=== PATIENT | female | born 1980 | race Hispanic/Latino ===

== ENCOUNTER 2017-07-12 17:57 | Emergency (ER) | payer BC ==
[2017-07-12 18:18] VITALS: BP 110/71; PULSE 68; RESP 18; TEMP 98.5; O2SAT 100
[2017-07-12] MEDS ORDERED: Iohexol 240 (50 ml) PO STA (18:45)
[2017-07-12] MEDS ORDERED: Sodium Chloride 0.9% 1,000 ML IV STA (18:46)
--- NOTE | 2017-07-12 19:11 | ED PDOC ---
HPI: Abdomen Time Seen by Provider: 07/12/17 18:26 Chief Complaint (Nursing): Abdominal Pain Chief Complaint (Provider): Left Lower Abdominal Pain History Per: Patient History/Exam Limitations: no limitations Onset/Duration Of Symptoms: Intermittent Episodes (over 6 months) Current Symptoms Are (Timing): Still Present Location Of Pain/Discomfort: LLQ Quality Of Discomfort: "Pain" Associated Symptoms: denies: Fever, Chills, Nausea, Vomiting, Diarrhea, Loss Of Appetite Exacerbating Factors: None Alleviating Factors: None Additional Complaint(s): 36 year old female with a past medical history of fibroids presents to the emergency department complaining of left lower abdominal pain which has been ongoing intermittently for past 6 months. Patient states that over the past 3 months the pain has become more frequent and and persistent. She reports that the pain is localized to the left lower quadrant as well as the groin area. Patient reports that the pain worsens with certain movements and last week she was unable to sleep comfortably because of the pain. Patient has also noted some weight loss. Denies fever, chills, night sweats, vaginal discharge, vaginal bleeding, diarrhea, constipation. She states she has not taken anything for pain. Patient further reports that over the past month she has been seen by her primary care provider as well as her clinic physician director and has undergone both transvaginal and transabdominal ultrasounds which were both unremarkable. PMD: Dr. Coffman ([place]) Nuclear Licensing Engineer: Dr. Giordano ([place], [place]) Past Medical History Reviewed: Historical Data, Nursing Documentation, Vital Signs Vital Signs: Last Vital Signs Temp 98.5 F 07/12/17 18:15 Pulse 68 07/12/17 18:15 Resp 18 07/12/17 18:15 BP 110/71 07/12/17 18:15 Pulse Ox 100 07/12/17 23:30 - Medical History Other PMH: Fibroids - Surgical History Surgical History: Other surgeries: Abdominal Plasty - Family History Family History: States: Diabetes, Hypertension Other Family History: Cancer - Social History Current smoker - smoking cessation education provided: Yes Ex-Smoker (has not smoked in the last 12 months): No Alcohol: None Drugs: Denies - Immunization History Hx Influenza Vaccination: No Hx Pneumococcal Vaccination: No - Home Medications Home Medications: Ambulatory Orders Medication Instructions Recorded Progesterone 02/20/14 - Allergies Allergies/Adverse Reactions: Allergies Allergy/AdvReac Type Severity Reaction Status Date / Time No Known Allergies Allergy Verified 07/12/17 18:14 Review of Systems ROS Statement: Except As Marked, All Systems Reviewed And Found Negative Constitutional: Negative for: Fever, Chills, Sweats (no night sweats), Weight loss Gastrointestinal: Positive for: Abdominal Pain (LLQ and left groin area). Negative for: Nausea, Vomiting, Diarrhea, Constipation Genitourinary Female: Positive for: Other (no urinary symptoms). Negative for: Vaginal Discharge, Vaginal Bleeding Physical Exam - Reviewed Nursing Documentation Reviewed: Yes Vital Signs Reviewed: Yes - Physical Exam Appears: Positive for: Non-toxic (well developed; well nourished; mildly obese) , In Acute Distress (mild painfu;) Head Exam: Positive for: ATRAUMATIC, NORMOCEPHALIC Skin: Positive for: Warm, Dry Eye Exam: Positive for: EOMI, PERRL ENT: Negative for: Pharyngeal Erythema, Tonsillar Exudate Neck: Positive for: Painless ROM, Supple Cardiovascular/Chest: Positive for: Regular Rate, Rhythm. Negative for: Murmur Respiratory: Positive for: Normal Breath Sounds. Negative for: Respiratory Distress Gastrointestinal/Abdominal: Positive for: Bowel Sounds, Soft, Tenderness ( Tenderness to llq and left inguinal area ). Negative for: Mass, Guarding, Rebound Back: Positive for: Normal Inspection. Negative for: Muscle Spasm Extremity: Positive for: Normal ROM. Negative for: Deformity Lymphatic: Negative for: Adenopathy Neurologic/Psych: Positive for: Alert. Negative for: Motor/Sensory Deficits - Laboratory Results Result Diagrams: 07/12/17 18:55 07/12/17 18:55 - ECG O2 Sat by Pulse Oximetry: 100 (RA) Pulse Ox Interpretation: Normal Medical Decision Making Medical Decision Makin Initial Impression: 36 y/o female presenting with left lower quadrant abdominal pain Differential: Colitis, Diverticulitis, Intraabdominal mass, Renal colic, Inguinal hernia, Adhesional pain Initial Plan: * CT ABD & PELVIS PO & IV Contrast * CMP * Upreg * Udip * CBC * NS 1000 ml IV 1000 mls/hr * Iohexol 50mL PO * Reevaluation Accession No. : [id number] Patient Name / ID : MARKELL CAMPOS / [id number] Exam Date : 07/12/2017 20:47:53 ( Approved ) Study Comment : Sex / Age : F / 36Y Creator : Stephen Isidro MD Dictator : [employer] Reader : Orthopedic Brace Maker : Stephen Isidro MD Approver2 : Report Date : 07/12/2017 21:46:00 My Comment : [facility] Division of Radiology [address] [place] [address] Tel. no. Patient Name: ANDRES GUILLAUME Pt. Address: [address] [place] [address]. Rec #: [id number] [place] [address]: Walter TSAI, Odessa Lechuga Pt CELL Order Location: [facility] : 1980 Female Age: 36 Order #: [id number] Reason for exam: LLQ pain CT Scan ABD PELVIS PO IV CONTRAST Exam Date: 07/12/17 This imaging exam was performed at [facility] EXAM: CT Abdomen and Pelvis With Intravenous Contrast CLINICAL HISTORY: 36 years old, female; Pain; Abdominal pain; Localized; Left lower quadrant (llq); Prior surgery; Surgery date: 6+ months; Surgery type: Amdominal plasty; Additional info: Llq pain TECHNIQUE: Axial computed tomography images of the abdomen and pelvis with intravenous contrast. All CT scans at this facility use one or more dose reduction techniques, viz.: automated exposure control; ma/kV adjustment per patient size (including targeted exams where dose is matched to indication; i.e. head); or iterative reconstruction technique. Coronal and sagittal reformatted images were created and reviewed. CONTRAST: 98 mL of omnipaque-300 administered intravenously. COMPARISON: No relevant prior studies available. FINDINGS: Limitations: Motion artifact - mild. Lung bases: No acute findings. Mediastinum: Probable small hiatal hernia. ABDOMEN: Liver: Fatty infiltration. Gallbladder and bile ducts: No calcified stones. No ductal dilation. Pancreas: No ductal dilation. No mass. Spleen: No splenomegaly. Adrenals: No mass. Kidneys and ureters: No mass. No hydronephrosis. Stomach and bowel: No definite mural thickening. No obstruction. PELVIS: Appendix: Normal caliber. No inflammation. Bladder: Apparent mild bladder wall thickening. Incomplete distention, limiting evaluation. Reproductive: 1.3 x 1.4 x 2.0 cm peripherally enhancing hypodensity with crenulated margins within RIGHT ovary. ABDOMEN and PELVIS: Intraperitoneal space: Trace free fluid within pelvis. No free air. Bones/joints: No acute fracture. Soft tissues: Mild linear scarring anterior pelvic wall. Vasculature: Unremarkable. No aneurysm. Lymph nodes: No pathologically enlarged lymph nodes. IMPRESSION: 1. Involuting or ruptured RIGHT ovarian follicle/cyst. 2. Mild cystitis vs underdistention. Correlate with urinalysis. 3. Incidental/non-acute findings are described above. Dictated By: Stephen Isidro MD Dictated Date/Time: 07/12/172145 Signed By: Stephen Isidro MD Date Signed: 2145 Transcribed By: AJIT Transcribe Date/Time : 07/12/172145 ACYP02/ALISHA HELTON pt findings and plan of care. No emergent issue at this time. Possibility of non-radiographic clinical source still not excluded and GI referral through PMD recommended. Questions/concerns answered/addressed. Pt requested copies of results which were given directly to her. Documented by Mehnaz Anguiano acting as a scribe for Odessa Watson MD. All medical record entries made by the Scribe were at my direction and personally dictated by me. I have reviewed the chart and agree that the record accurately reflects my personal performance of the history, physical exam, medical decision making, and the department course for this patient. I have also personally directed, reviewed, and agree with the discharge instructions and disposition. Disposition - Clinical Impression Clinical Impression: Abdominal pain Counseled Patient/Family Regarding: Studies Performed, Diagnosis, Need For Followup - Disposition Disposition: Routine/Home Disposition Time: 23:30 Condition: STABLE Additional Instructions: TAKE TYLENOL OR MOTRIN FOR PAIN FOLLOW UP WITH YOUR DOCTOR IN 2-3 DAYS. YOU MAY NEED A REFERRAL TO STRAIGHT RULING MACHINE OPERATOR FOR ANY FURTHER EVALUATION. Instructions: Stomach Ache and Stomach Upset Forms: [employer] ([place])
[2017-07-12 19:15] LABS: BASO % 0.6 % (0.0-2.0); EOS % 0.7 % (0.0-4.0); HEMOGLOBIN 13.1 g/dL (12.0-16.0); LYMPH # 3.1 K/uL (1.0-4.3); MEAN CELL VOLUME 85.9 fl (81.0-99.0); MEAN CORPUSCULAR HEMOGLOBIN 28.8 pg (27.0-31.0); MEAN CORPUSCULAR HGB CONC 33.5 g/dL (33.0-37.0); MEAN PLATELET VOLUME 11.8 fl (7.2-11.7); MONO # 0.5 K/uL (0.0-0.8); NEUT # 3.1 K/uL (1.8-7.0); NEUT % 45.7 % (50.0-75.0); RBC 4.54 Mil/uL (3.80-5.20); RED CELL DISTRIBUTION WIDTH 12.8 % (11.5-14.5); WHITE BLOOD COUNT 6.7 K/uL (4.8-10.8)
[2017-07-12 19:24] LABS: ALB/GLOB RATIO 1.1 (1.0-2.1); ALBUMIN 3.5 g/dL (3.5-5.0); ALT/SGPT 48 U/L (9-52); AST/SGOT 24 U/L (14-36); BLOOD UREA NITROGEN 12 mg/dl (7-17); CALCIUM 8.7 mg/dL (8.4-10.2); GFR AFRICAN-AMERICAN > 60; GFR NON-AFRICAN AMERICAN > 60
[2017-07-12] MEDS ORDERED: Iohexol 300 100 ML IJ ONE (20:35)
[2017-07-12] MEDS ORDERED: Sodium Chloride 0.9% 100 ML ONE (20:36)
--- NOTE | 2017-07-12 21:46 | CT ---
EXAM: CT Abdomen and Pelvis With Intravenous Contrast CLINICAL HISTORY: 36 years old, female; Pain; Abdominal pain; Localized; Left lower quadrant (llq); Prior surgery; Surgery date: 6+ months; Surgery type: Amdominal plasty; Additional info: Llq pain TECHNIQUE: Axial computed tomography images of the abdomen and pelvis with intravenous contrast. All CT scans at this facility use one or more dose reduction techniques, viz.: automated exposure control; ma/kV adjustment per patient size (including targeted exams where dose is matched to indication; i.e. head); or iterative reconstruction technique. Coronal and sagittal reformatted images were created and reviewed. CONTRAST: 98 mL of omnipaque-300 administered intravenously. COMPARISON: No relevant prior studies available. FINDINGS: Limitations: Motion artifact - mild. Lung bases: No acute findings. Mediastinum: Probable small hiatal hernia. ABDOMEN: Liver: Fatty infiltration. Gallbladder and bile ducts: No calcified stones. No ductal dilation. Pancreas: No ductal dilation. No mass. Spleen: No splenomegaly. Adrenals: No mass. Kidneys and ureters: No mass. No hydronephrosis. Stomach and bowel: No definite mural thickening. No obstruction. PELVIS: Appendix: Normal caliber. No inflammation. Bladder: Apparent mild bladder wall thickening. Incomplete distention, limiting evaluation. Reproductive: 1.3 x 1.4 x 2.0 cm peripherally enhancing hypodensity with crenulated margins within RIGHT ovary. ABDOMEN and PELVIS: Intraperitoneal space: Trace free fluid within pelvis. No free air. Bones/joints: No acute fracture. Soft tissues: Mild linear scarring anterior pelvic wall. Vasculature: Unremarkable. No aneurysm. Lymph nodes: No pathologically enlarged lymph nodes. IMPRESSION: 1. Involuting or ruptured RIGHT ovarian follicle/cyst. 2. Mild cystitis vs underdistention. Correlate with urinalysis. 3. Incidental/non-acute findings are described above.
== END 2017-07-13 01:00 | disposition home or self-care (01) ==
LOC: H.ER 17:57
DX: R10.32 Left lower quadrant pain (principal); N83.291 Other ovarian cyst, right side
CPT/HCPCS: 74177; 80053; 81025; 85025; 99283; J7040; Q9966; Q9967